=== PATIENT | male | born 2000 | race African-American/Black ===

== ENCOUNTER 2022-09-03 10:42 | Emergency (ER) | payer BC ==
[~2022-09-03] VITALS: Ht 177.8 cm; Wt 74.8 kg
[2022-09-03] MEDS ORDERED: MOMETASONE FURO15 G2 TOP (12:25)
[2022-09-03] MEDS ORDERED: ZYRTEC10 M3 PO (12:25)
== END 2022-09-03 12:38 | disposition home or self-care (01) ==
LOC: ER 10:42
DX: R21 Rash and other nonspecific skin eruption (principal)